=== PATIENT | male | born 1975 | race Caucasian/White ===

== ENCOUNTER 2018-02-13 08:27 | Emergency (ER) | payer OTHER ==
[~2018-02-13] VITALS: Ht 188 cm; Wt 81.6 kg
[2018-02-13] MEDS ORDERED: COZAAR100 MG (08:37)
[2018-02-13] MEDS ORDERED: AMLODIPINE BESYL5 MG (08:38)
[2018-02-13] MEDS ORDERED: BUSPIRONE HCL10 MG (08:38)
[2018-02-13] MEDS ORDERED: APLENZIN174 MG (08:38)
== END 2018-02-13 10:52 | disposition home or self-care (01) ==
LOC: ER 08:27
DX: I10 Essential (primary) hypertension (principal); R00.2 Palpitations; K21.9 Gastro-esophageal reflux disease without esophagitis; D64.89 Other specified anemias